=== PATIENT | female | born 2005 | race Caucasian/White ===

== ENCOUNTER 2024-05-05 02:55 | Emergency (ER) | payer OTHER ==
[2024-05-05] MEDS ORDERED: Ibuprofen 200 MG TAB ONE (03:17)
[2024-05-05] MEDS ORDERED: Cyclobenzaprine 10 MG TAB ONE (03:17)
== END 2024-05-05 03:32 | disposition home or self-care (01) ==
LOC: BURERS 02:55
DX: S16.1XXA Strain of muscle, fascia and tendon at neck level, initial encounter (principal); X50.1XXA Overexertion from prolonged static or awkward postures, initial encounter
CPT/HCPCS: 99283